=== PATIENT | female | born 1990 | race African-American/Black ===

== ENCOUNTER 2023-12-10 19:43 | Inpatient (IN) | payer MEDICARE, OTHER ==
[~2023-12-10] VITALS: Ht 157.5 cm; Wt 86.6 kg
[2023-12-10 20:04] VITALS: O2SAT 98
[2023-12-10 21:42] LABS: CALCIUM, SERUM 9.5 mg/dL (8.5-10.1); CREATININE 0.9 mg/dL (0.6-1.3); POTASSIUM 3.6 mmol/L (3.5-5.1)
[2023-12-10 21:43] LABS: BASOPHILS # (AUTO) 0.1 K/uL (0.0-0.2); EOSINOPHILS # (AUTO) 0.1 K/uL (0.0-0.7); EOSINOPHILS % (AUTO) 0.4 % (0.0-6.0); HEMATOCRIT 41 % (33-45); HEMOGLOBIN 13.2 g/dL (11.5-14.8); LYMPHOCYTES % (AUTO) 7.5 % (20.0-44.0); MEAN CORPUSCULAR HEMOGLOBIN 27 PG (26.0-33.0); MEAN CORPUSCULAR HGB CONC 32 g/dl (31.0-36.0); MEAN CORPUSCULAR VOLUME 85 fL (82-100); MONOCYTES # (AUTO) 1.6 K/uL (0.1-1.30); MONOCYTES % (AUTO) 12.9 % (2.0-12.0); NEUTROPHILS % (AUTO) 78.2 % (43.0-81.0); PLATELET COUNT (AUTO) 263 K/uL (150-450); RED BLOOD CELL COUNT(AUTO) 4.84 MIL/uL (4.0-5.2); RED CELL DISTRIBUTION WIDTH 14.6 % (11.5-15.0); WHITE BLOOD COUNT (AUTO) 12.8 K/uL (4.3-11.0)
[2023-12-10] MEDS: IV NS 0.9% 1,000 ML BAG IV ONE (21:44)
[2023-12-10] MEDS ORDERED: MORPHINE SULFATE INJ 4 MG/ML DISP.SYRIN ONE (21:45)
[2023-12-10 21:47] LABS: BILIRUBIN,DIRECT 0.2 mg/dL (0.0-0.2); BILIRUBIN,TOTAL 1.2 mg/dL (0.2-1.0); TOTAL PROTEIN, SERUM 7.7 g/dL (6.4-8.2)
[2023-12-10] MEDS: methylPREDNISolone SOD SUCC 125 MG/2ML VIAL IV ONE (21:53)
[2023-12-10] MEDS: MORPHINE SULFATE INJ 2 MG/ML DISP.SYRIN IV STA (21:55)
[2023-12-10] MEDS ORDERED: ONDANSETRON HCL/PF 4 MG/2 ML VIAL IVP PRN (23:00)
[2023-12-10] MEDS ORDERED: MAGNESIUM HYDROXIDE 30 ML UDC PO PRN (23:00)
[2023-12-10] MEDS ORDERED: Z GUARD REMEDY 4 OZ OINT TP PRN (23:00)
[2023-12-10] MEDS ORDERED: MAG HYDROX/AL HYDROX/SIMETH 30 ML UDC PO PRN (23:00)
[2023-12-10] MEDS ORDERED: ACETAMINOPHEN 325 MG TABLET PO PRN (23:00)
[2023-12-10 23:10] LABS: APPEARANCE,URINE CLOUDY (CLEAR); BILIRUBIN,URINE NEGATIVE (NEGATIVE); BLOOD, URINE 3+ Ery/uL (NEGATIVE); COLOR,URINE YELLOW (YELLOW); KETONES,URINE NEGATIVE (NEGATIVE); LEUKOCYTE ESTERASE ,URINE 3+ (NEGATIVE); NITRITE, URINE POSITIVE (NEGATIVE); PROTEIN,URINE TRACE mg/dl (NEGATIVE); UGLUCOSE NEGATIVE (NEGATIVE); UROBILINOGEN,URINE 0.2 EU/dL (0.2)
[2023-12-10 23:30] VITALS: BP 127/82; TEMP 98.2; O2SAT 98
[2023-12-10 23:58] LABS: ADD URINE CULTURE YES; BACTERIA,URINE Many /HPF (None Seen); RBC,URINE 21-50 /HPF (0-2); SQUAMOUS EPITHELIAL CELL,UR Moderate /HPF (None Seen); WBC,URINE 21-50 /HPF (0-3)
[2023-12-11] MEDS: ENOXAPARIN SODIUM 40 MG/0.4 ML DISP.SYRIN SQ SCH (00:16)
[2023-12-11] MEDS: IV NS 0.9% 1,000 ML IV PRN (00:49)
[2023-12-11] MEDS: methylPREDNISolone SOD SUCC 125 MG/2ML VIAL IV SCH (05:38)
[2023-12-11] MEDS: MORPHINE SULFATE INJ 2 MG/ML DISP.SYRIN IV PRN (06:06)
[2023-12-11 08:00] VITALS: BP 127/81; TEMP 97.9; O2SAT 98
[2023-12-11] MEDS ORDERED: ALBU18HF2 PO (08:05)
[2023-12-11] MEDS ORDERED: DULO20CA19 PO (08:05)
[2023-12-11] MEDS ORDERED: GABA600T12 PO (08:05)
[2023-12-11] MEDS ORDERED: GABA300C PO (08:05)
[2023-12-11] MEDS ORDERED: OXYB15TA19 PO (08:05)
[2023-12-11] MEDS ORDERED: ONDA4TAB11 PO (08:05)
[2023-12-11] MEDS ORDERED: DOCU-270 PO (08:05)
[2023-12-11] MEDS ORDERED: OXYC1TAB12 MT (08:05)
[2023-12-11] MEDS ORDERED: TRAZ-252 PO (08:05)
[2023-12-11] MEDS ORDERED: METH750T3 PO (08:05)
[2023-12-11 08:27] LABS: BASOPHILS # (AUTO) 0.1 K/uL (0.0-0.2); BASOPHILS % (AUTO) 0.4 % (0.0-2.0); HEMATOCRIT 35 % (33-45); HEMOGLOBIN 12.1 g/dL (11.5-14.8); LYMPHOCYTES # (AUTO) 0.5 K/uL (0.8-4.8); MEAN CORPUSCULAR HEMOGLOBIN 29 PG (26.0-33.0); MEAN CORPUSCULAR HGB CONC 34 g/dl (31.0-36.0); MEAN CORPUSCULAR VOLUME 83 fL (82-100); MONOCYTES # (AUTO) 0.2 K/uL (0.1-1.30); MONOCYTES % (AUTO) 1.4 % (2.0-12.0); NEUTROPHILS # (AUTO) 12.3 K/uL (1.8-8.9); NEUTROPHILS % (AUTO) 94.2 % (43.0-81.0); PLATELET COUNT (AUTO) 336 K/uL (150-450); RED BLOOD CELL COUNT(AUTO) 4.25 MIL/uL (4.0-5.2); RED CELL DISTRIBUTION WIDTH 14.4 % (11.5-15.0)
[2023-12-11 08:37] LABS: CREATININE 0.7 mg/dL (0.6-1.3); MAGNESIUM 1.9 mg/dL (1.8-2.4); PHOSPHORUS 1.9 mg/dL (2.5-4.9); POTASSIUM 3.5 mmol/L (3.5-5.1)
[2023-12-11] MEDS: PANTOPRAZOLE 40 MG VIAL IV SCH (08:39)
[2023-12-11 10:55] LABS: PREGNANCY TEST URINE QUAL NEGATIVE (NEGATIVE)
[2023-12-11] MEDS: CEFTRIAXONE 1 G in IV D5W 50 ML IV SCH (13:55)
[2023-12-11 16:00] VITALS: BP 138/80; TEMP 98.6; O2SAT 100
[2023-12-11] MEDS: K PHOS NEUTRAL 250 MG TABLET PO ONE (17:45)
[2023-12-11 21:16] VITALS: BP 142/95; TEMP 98.4; O2SAT 99
[2023-12-11] MEDS: ZOLPIDEM TARTRATE 5 MG TABLET PO PRN (23:26)
[2023-12-12 07:30] VITALS: BP 136/88; TEMP 97.7; O2SAT 100
[2023-12-12] MEDS: PANTOPRAZOLE 40 MG TABLET.DR PO SCH (08:34)
[2023-12-12 09:16] LABS: BASOPHILS # (AUTO) 0.1 K/uL (0.0-0.2); BASOPHILS % (AUTO) 0.3 % (0.0-2.0); HEMATOCRIT 36 % (33-45); HEMOGLOBIN 11.8 g/dL (11.5-14.8); LYMPHOCYTES # (AUTO) 0.9 K/uL (0.8-4.8); LYMPHOCYTES % (AUTO) 3.9 % (20.0-44.0); MEAN CORPUSCULAR HEMOGLOBIN 28 PG (26.0-33.0); MEAN CORPUSCULAR HGB CONC 33 g/dl (31.0-36.0); MEAN CORPUSCULAR VOLUME 84 fL (82-100); MONOCYTES # (AUTO) 1.8 K/uL (0.1-1.30); MONOCYTES % (AUTO) 7.8 % (2.0-12.0); NEUTROPHILS # (AUTO) 20.7 K/uL (1.8-8.9); PLATELET COUNT (AUTO) 342 K/uL (150-450); RED BLOOD CELL COUNT(AUTO) 4.25 MIL/uL (4.0-5.2); RED CELL DISTRIBUTION WIDTH 14.7 % (11.5-15.0); WHITE BLOOD COUNT (AUTO) 23.5 K/uL (4.3-11.0)
[2023-12-12 09:28] LABS: CALCIUM, SERUM 9.1 mg/dL (8.5-10.1); CREATININE 0.7 mg/dL (0.6-1.3); PHOSPHORUS 2.8 mg/dL (2.5-4.9); POTASSIUM 3.5 mmol/L (3.5-5.1)
[2023-12-12] MEDS ORDERED: CEPH500C2 PO (12:06)
[2023-12-12 16:38] VITALS: BP_SYST 135; BP_SYST 144; BP_DIAS 106; BP_DIAS 88; TEMP 97.9; TEMP 98.8; O2SAT 100
== END 2023-12-12 18:49 | disposition home health service (06) | DRG 59 ==
LOC: ER 19:45 → MED 22:34
PROVIDERS: ADMIT Nurse Practitioner Family; ATTEND Nurse Practitioner Acute Care
DX: G35 Multiple sclerosis (principal); H46.9 Unspecified optic neuritis; N39.0 Urinary tract infection, site not specified; G89.29 Other chronic pain; I10 Essential (primary) hypertension; E66.3 Overweight; Z68.34 Body mass index [BMI] 34.0-34.9, adult; H54.8 Legal blindness, as defined in USA; B96.89 Other specified bacterial agents as the cause of diseases classified elsewhere; D49.6 Neoplasm of unspecified behavior of brain; Z96.82 Presence of neurostimulator; I27.20 Pulmonary hypertension, unspecified; R32 Unspecified urinary incontinence; D72.829 Elevated white blood cell count, unspecified; T38.0X5A Adverse effect of glucocorticoids and synthetic analogues, initial encounter; Y92.9 Unspecified place or not applicable; Z79.899 Other long term (current) drug therapy; Z79.51 Long term (current) use of inhaled steroids
CPT/HCPCS: 36415; 71045-TC; 80048-TC; 80076-TC; 81001; 83735-TC; 84100-TC; 84703-TC; 85025-TC; 87086-TC; 97112-TC; 97116-TC; 97530-TC; A4223; C9113; G0378; J0696; J1650; J2270; J2919; J7030; J7060